=== PATIENT | female | born 1960 ===

== ENCOUNTER 2019-01-08 09:08 | Outpatient (CLI) | payer MEDICAID ==
[2019-01-08] MEDS ORDERED: iohexol 300mg/ml 100ml inj. ONE (09:39)
[2019-01-08] MEDS ORDERED: BARIUM SULFATE/METHYLCELLULOSE 600 ML SUSPENSION BOTTLE**DONT ENTER PO ONE (13:00)
[2019-01-08] MEDS ORDERED: BARIUM SULFATE 340 ML SUSP.RECON***PROCEDURE AREA ONLY**DONT ENTER PO ONE (13:00)
== END 2019-01-08 23:59 | disposition home or self-care (01) ==
LOC: RAD 09:08
PROVIDERS: ATTEND Internal Medicine
DX: J98.11 Atelectasis (principal); J90 Pleural effusion, not elsewhere classified; I51.7 Cardiomegaly; D73.4 Cyst of spleen; K21.9 Gastro-esophageal reflux disease without esophagitis; R13.10 Dysphagia, unspecified
CPT/HCPCS: 71250; 74245; Q9967